=== PATIENT | male | born 1970 | race Caucasian/White ===

== ENCOUNTER 2016-09-23 23:19 | Emergency (ER) | payer SELFPAY ==
[2016-09-23] MEDS ORDERED: methylPREDNISolone Sod Succ/PF 125 MG/2 ML VIAL ONE (23:42)
[2016-09-23] MEDS ORDERED: Ibuprofen 800 MG TAB ONE (23:42)
== END 2016-09-23 23:55 | disposition home or self-care (01) ==
LOC: MADERS 23:19
DX: T14.8 Other injury of unspecified body region (principal); F17.210 Nicotine dependence, cigarettes, uncomplicated
CPT/HCPCS: 96372; J2930

== ENCOUNTER 2016-10-05 15:16 | Emergency (ER) | payer SELFPAY ==
[~2016-10-05 15:16] MED LIST: Sodium Chloride 0.9% 1,000 ML BAG ONE
[2016-10-05] MEDS ORDERED: methylPREDNISolone Sod Succ/PF 125 MG/2 ML VIAL ONE (15:32)
[2016-10-05] MEDS ORDERED: Albuterol Sulfate 2.5 mg/0.5 ml Neb ONE ×2 (15:36→16:28)
[2016-10-05] MEDS ORDERED: Magnesium Sulfate 2 GM/NS 0.9% 50 ML BAG ONE (15:36)
[2016-10-05 15:45] LABS: #Basophils 0.2 thou/uL (0.0-0.2); #Eosinphils 2.4 thou/uL (0.0-0.7); #Lymphocytes 2.4 thou/uL (1.20-3.40); #Monocytes 0.9 thou/uL (0.11-0.59); #Neutrophils 9.6 thou/uL (1.40-6.50); %Basophils 1.2 % (0.0-1.0); %Eosinophils 15.5 % (0.0-10.0); %Lymphocytes 15.6 % (21.0-51.0); %Monocytes 6.1 % (0.0-10.0); %Neutrophils 61.7 % (42.0-75.0); Hemoglobin 16.4 g/dL (14.0-18.0); Mean Corpuscular HGB CONC 33.9 g/dL (32.0-36.0); Mean Corpuscular Hemoglobin 31.3 pg (27.0-31.0); Mean Corpuscular Volume 92.4 fl (80.0-94.0); Mean Platelet Volume 6.6 fL (7.4-10.4); Platelet Count 307 thou/uL (130-400); RBC Distribution Width 11.9 % (11.5-14.5); Red Blood Cell (RBC) Count 5.23 mill/uL (4.70-6.10); White Blood Cell (WBC) Count 15.5 thou/uL (4.8-10.8)
[2016-10-05 15:59] LABS: ALT (SGPT) 22 U/L (8-55); AST (SGOT) 14 U/L (5-34); Albumin 4.1 g/dL (3.5-5.0); Alkaline Phosphatase 115 U/L (40-150); Anion Gap 18 mmol/L (10-20); BUN (Urea Nitrogen) 12 mg/dL (8.9-20.6); Bilirubin, Total 0.4 mg/dL (0.2-1.2); Calc. Creatinine Clearance 0 mL/min (70-130); Calcium 9.6 mg/dL (7.8-10.44); Carbon Dioxide 26 mmol/L (22-29); Chloride 100 mmol/L (98-107); Estimated GFR-MDRD 74; Globulin 3.2 g/dL (2.4-3.5); Glucose 149 mg/dL (70-105); Potassium 4.3 mmol/L (3.5-5.1); Protein, Total 7.3 g/dL (6.0-8.3); Sodium 140 mmol/L (136-145)
[2016-10-05 16:01] LABS: CKMB 1.7 ng/mL (0-6.6); Troponin I Less than 0.010 ng/mL (< 0.028)
--- NOTE | 2016-10-05 16:22 | RAD ---
PORTABLE CHEST ONE VIEW 10/05/16 at 3:27 p.m. HISTORY: Cough. FINDINGS: The heart size is normal. The lungs are expanded without focal areas of consolidation, pneumothorax or pleural effusions. IMPRESSION: No radiographic evidence of acute cardiopulmonary process. POS: [facility]
== END 2016-10-05 17:08 | disposition home or self-care (01) ==
LOC: MADERS 15:16
DX: J45.909 Unspecified asthma, uncomplicated (principal); J20.9 Acute bronchitis, unspecified; F17.210 Nicotine dependence, cigarettes, uncomplicated
CPT/HCPCS: 71010; 80053; 82553; 83880; 84484; 85025; 93005; 96361; 96365; 96375; J2930; J3475; J7050; J7611; J7620

== ENCOUNTER 2016-10-17 02:36 | Emergency (ER) | payer SELFPAY ==
[2016-10-17] MEDS ORDERED: hydrOXYzine 25 MG TAB ONE (03:50)
[2016-10-17] MEDS ORDERED: diphenhydrAMINE HCl 50 MG/ML 1 ML VIAL ONE (03:53)
== END 2016-10-17 04:47 ==
LOC: MADERS 02:36
DX: L50.0 Allergic urticaria (principal); T38.0X5A Adverse effect of glucocorticoids and synthetic analogues, initial encounter; F17.210 Nicotine dependence, cigarettes, uncomplicated
CPT/HCPCS: 96372; J1040; J1200

== ENCOUNTER 2016-12-18 05:57 | Emergency (ER) | payer SELFPAY ==
[2016-12-18] MEDS ORDERED: hydrOXYzine 25 MG TAB ONE (06:21)
[2016-12-18] MEDS ORDERED: diphenhydrAMINE HCl 50 MG/ML 1 ML VIAL ONE (07:49)
== END 2016-12-18 10:05 | disposition home or self-care (01) ==
LOC: MADERS 05:57
DX: S50.862A Insect bite (nonvenomous) of left forearm, initial encounter (principal); S50.861A Insect bite (nonvenomous) of right forearm, initial encounter; T38.0X5A Adverse effect of glucocorticoids and synthetic analogues, initial encounter; F17.210 Nicotine dependence, cigarettes, uncomplicated; W57.XXXA Bitten or stung by nonvenomous insect and other nonvenomous arthropods, initial encounter
CPT/HCPCS: 96372; 96374; J1040; J1200

== ENCOUNTER 2017-10-06 00:15 | Emergency (ER) | payer OTHER, SELFPAY | END 2017-10-06 00:45 | disposition home or self-care (01) | LOC: MADERS 00:15 | DX: S60.862A Insect bite (nonvenomous) of left wrist, initial encounter (principal); F17.210 Nicotine dependence, cigarettes, uncomplicated | CPT/HCPCS: 99281 ==

== ENCOUNTER 2017-11-24 09:28 | Emergency (ER) | payer OTHER, SELFPAY | END 2017-11-24 09:50 | disposition home or self-care (01) | LOC: MADERS 09:28 | DX: L73.9 Follicular disorder, unspecified (principal); F17.210 Nicotine dependence, cigarettes, uncomplicated | CPT/HCPCS: 99283 ==